=== PATIENT | female | born 1965 | race Caucasian/White ===

== ENCOUNTER 2021-04-13 17:58 | Emergency (ER) | payer OTHER ==
[~2021-04-13] VITALS: Ht 157.5 cm; Wt 79.5 kg
[2021-04-13] MEDS ORDERED: LIDOCAINE 5% TRANSDERMAL PATCH TD ONE (21:45)
[2021-04-13] MEDS ORDERED: KETOROLAC TROMETHAMINE 60 MG/2 ML VIAL IM ONE (21:45)
[2021-04-13] MEDS ORDERED: CYCLOBENZAPRINE HCL 10 MG TABLET PO ONE (21:45)
[2021-04-13 22:24] VITALS: BP 120/71
== END 2021-04-13 23:15 | disposition home or self-care (01) ==
LOC: EMS 19:29
DX: G89.29 Other chronic pain (principal); M54.42 Lumbago with sciatica, left side; I10 Essential (primary) hypertension
CPT/HCPCS: 96372; 99283; J1885

== ENCOUNTER 2024-05-13 15:40 | Inpatient (IN) | payer MEDICAID, OTHER ==
[~2024-05-13] VITALS: Ht 157.5 cm; Wt 71.7 kg
[2024-05-13] MEDS ORDERED: ZOLPIDEM TARTRATE 10 MG TABLET PO PRN (17:00)
[2024-05-13] MEDS ORDERED: HALOPERIDOL 5 MG TABLET PO PRN (17:00)
[2024-05-13 19:59] LABS: APPEARANCE,URINE CLEAR (CLEAR); BILIRUBIN,URINE NEGATIVE (NEGATIVE); COLOR,URINE COLORLESS (YELLOW); GLUCOSE, URINE (UA) NEGATIVE (NEGATIVE); KETONES,URINE NEGATIVE (NEGATIVE); LEUKOCYTE ESTERASE ,URINE NEGATIVE (NEGATIVE); NITRATE,URINE NEGATIVE (NEGATIVE); OCCULT BLOOD,URINE NEGATIVE (NEGATIVE); PROTEIN,URINE NEGATIVE (NEGATIVE); SPECIFIC GRAVITIY, URINE 1.005 (1.003-1.030); UROBILINOGEN,URINE <=1.0 mg/dL (<=1.0)
[2024-05-13 20:06] LABS: ALCOHOL, URINE DRUG SCREEN NEGATIVE (NEGATIVE); AMPHET/METH SCREEN,URINE POSITIVE (NEGATIVE); BARBITURATE SCREEN, URINE NEGATIVE (NEGATIVE); BENZODIAZEPINES SCREEN,URINE NEGATIVE (NEGATIVE); CANNABINOID SCREEN,URINE NEGATIVE (NEGATIVE); COCAINE SCREEN,URINE NEGATIVE (NEGATIVE); METHADONE SCREEN, URINE NEGATIVE (NEGATIVE); OPIATE SCREEN,URINE NEGATIVE (NEGATIVE); PHENCYCLIDINE SCREEN,URINE NEGATIVE (NEGATIVE)
[2024-05-13 20:06] LABS: COVID AG,FIA SOURCE NASAL SWAB
[2024-05-13 20:32] LABS: SARS-COV2 (COVID) ANTIGEN,FIA Negative (Negative)
[2024-05-14] VITALS (7 sets, daily range): BP systolic 95–109; BP diastolic 57–60; PULSE 75–85; RESP 17–19; TEMP 98–98.5; O2SAT 95–98
[2024-05-14] MEDS ORDERED: MAG HYDROX/ALUMINUM HYD/SIMETH ES 30 ML SUSPENSION UDCUP PO PRN (07:30)
[2024-05-14] MEDS ORDERED: MAGNESIUM HYDROXIDE SUSPENSION 30 ML UDCUP PO PRN (07:30)
[2024-05-14] MEDS ORDERED: OMEPRAZOLE 20 MG CAPSULE PO PRN (07:30)
[2024-05-14] MEDS ORDERED: CloNIDine HCL 0.1 MG TABLET PO PRN (07:30)
[2024-05-14] MEDS ORDERED: DOCUSATE SODIUM 100 MG CAPSULE PO PRN (07:30)
[2024-05-14] MEDS ORDERED: LOPERAMIDE HCL 2 MG CAPSULE PO PRN (07:30)
[2024-05-14] MEDS ORDERED: BENZOCAINE/MENTHOL LOZENGE PO PRN (07:30)
[2024-05-14] MEDS ORDERED: PETROLATUM,WHITE 28 GM JELLY TP PRN (07:30)
[2024-05-14] MEDS ORDERED: ALBUTEROL SULFATE HFA 90 MCG/PUFF 8 GM INHALER IH PRN (07:30)
[2024-05-14] MEDS ORDERED: BACITRACIN 28 GM OINTMENT TP PRN (07:30)
[2024-05-14] MEDS: LORazepam 2 MG TABLET PO PRN (10:31)
[2024-05-14] MEDS: ACETAMINOPHEN 325 MG TABLET PO PRN (14:15)
[2024-05-14] MEDS: IBUPROFEN 600 MG TABLET PO PRN (17:04)
[2024-05-14] MEDS: GABAPENTIN 100 MG CAPSULE PO SCH (18:10)
[2024-05-14] MEDS: ONDANSETRON 4 MG TABLET PO PRN (18:20)
[2024-05-15 08:49] VITALS: BP 123/70; PULSE 87; RESP 17; TEMP 98.5; O2SAT 97
[2024-05-15 12:21] VITALS: BP 129/74; PULSE 87; RESP 18; TEMP 98.7; O2SAT 98
[2024-05-15 21:43] VITALS: RESP 18
[2024-05-16 09:35] VITALS: RESP 18
[2024-05-16 10:50] VITALS: BP 132/89; PULSE 90; RESP 20; TEMP 97.8; O2SAT 95
[2024-05-16 11:11] LABS: GLUCOMETER DEV NAME(LOC) 3EX.2; GLUCOSE,POINT OF CARE 86 MG/DL (70-110)
[2024-05-16 16:17] LABS: BASOPHILS % (AUTO) 0.6 % (0.0-2.0); EOSINOPHILS % (AUTO) 1.8 % (1.0-6.0); HEMATOCRIT 40.7 % (36-46); HEMOGLOBIN 13.4 g/dL (12.0-16.0); LYMPHOCYTES # (AUTO) 2.4 K/uL (1.0-4.8); LYMPHOCYTES % (AUTO) 26.9 % (22.0-44.0); MEAN CORPUSCULAR HGB CONC 32.9 G/dL (31.0-37.0); MEAN CORPUSCULAR VOLUME 88 fL (80-100); MONOCYTES # (AUTO) 0.7 K/uL (0.1-1.0); MONOCYTES % (AUTO) 7.9 % (2.0-9.0); NEUTROPHILS # (AUTO) 5.7 K/uL (1.8-7.7); NEUTROPHILS % (AUTO) 62.8 % (40.0-70.0); PLATELET COUNT (AUTO) 424 K/uL (150-450); RED BLOOD CELL COUNT(AUTO) 4.63 MIL/uL (4.00-5.20); RED CELL DISTRIBUTION WIDTH 14.9 % (11.5-14.5); WHITE BLOOD COUNT (AUTO) 9.1 K/uL (4.5-11.0)
[2024-05-16 16:50] LABS: HEMOGLOBIN A1C 5.7 % (3.8-5.6)
[2024-05-16] MEDS: DIVALPROEX SODIUM 500 MG DR TABLET PO SCH (17:00)
[2024-05-16] MEDS: RisperiDONE 1 MG TABLET PO SCH (17:00)
[2024-05-16 17:01] LABS: ALANINE AMINOTRANSFERASE 21 U/L (12-78); ALBUMIN 3.3 g/dL (3.4-5.0); ALKALINE PHOSPHATASE 82 U/L (46-116); ANION GAP 6 mmol/L (8-16); ASPARTATE AMINOTRANSFERASE 14 U/L (15-37); BILIRUBIN,TOTAL 0.2 mg/dL (0.1-1.0); CALCIUM, TOTAL 9.2 mg/dL (8.8-10.5); CARBON DIOXIDE 32 mmol/L (22-29); CHLORIDE 100 mmol/L (98-107); CHOL/HDL RATIO 3.5 (3.9-5.7); CHOLESTEROL 159 mg/dL (131-200); GLOMERULAR FILTR. RATE CALC > 60 mL/min (>60); GLUCOSE,RANDOM 121 mg/dL (70-110); HDL CHOLESTEROL 46 mg/dL (40-60); LDL CHOL (CALC.) 63 mg/dL (0-130); POTASSIUM 4.3 mmol/L (3.5-5.1); SODIUM SERUM 138 mmol/L (136-145); TOTAL PROTEIN, SERUM 7.2 g/dL (6.4-8.2); TRIGLYCERIDES 250 mg/dL (15-150); UREA NITROGEN, BLOOD 13 mg/dL (7-18)
[2024-05-16 22:00] VITALS: BP 117/78; PULSE 85; RESP 18; TEMP 98.8; O2SAT 98
[2024-05-17 10:02] VITALS: BP 138/78; PULSE 96; RESP 18; O2SAT 98
[2024-05-17] MEDS ORDERED: DIVA-112 PO (12:07)
[2024-05-17] MEDS ORDERED: RISP-31 PO (12:07)
[2024-05-17] MEDS ORDERED: GABA-1216 PO (12:09)
== END 2024-05-17 14:20 | disposition home or self-care (01) | DRG 751 ==
LOC: EMS 15:43 → 3EI 23:58
PROVIDERS: ADMIT Psychiatry & Neurology Psychiatry; ATTEND Psychiatry & Neurology Psychiatry
PROC: GZHZZZZ Group Psychotherapy (ICD-10-PCS; principal; 2024-05-14)
PROC: GZ56ZZZ Individual Psychotherapy, Supportive (ICD-10-PCS; 2024-05-14)
DX: F29 Unspecified psychosis not due to a substance or known physiological condition (principal); R45.851 Suicidal ideations; Z20.822 Contact with and (suspected) exposure to COVID-19; F10.10 Alcohol abuse, uncomplicated; F41.9 Anxiety disorder, unspecified; G47.00 Insomnia, unspecified; I10 Essential (primary) hypertension; K59.00 Constipation, unspecified; M54.30 Sciatica, unspecified side; F20.9 Schizophrenia, unspecified; K21.9 Gastro-esophageal reflux disease without esophagitis; Y90.9 Presence of alcohol in blood, level not specified; F32.A Depression, unspecified; F15.10 Other stimulant abuse, uncomplicated; Z88.2 Allergy status to sulfonamides; Z79.899 Other long term (current) drug therapy; Z88.3 Allergy status to other anti-infective agents; Z72.0 Tobacco use
CPT/HCPCS: 80053; 80061; 80307; 81003; 82962; 83036; 84443; 85025; 99285; G0480; Q0162